=== PATIENT | female | born 1965 | race Caucasian/White ===

== ENCOUNTER → 2016-10-29 | Outpatient (CLI) | payer BC ==
--- NOTE | 2016-10-29 14:39 | DIAGNOSTIC IMAGING REPORT ---
LEFT KNEE 4 OR MORE CLINICAL HISTORY: LEFT KNEE PAIN COMPARISON STUDY: None. FINDINGS: Moderate left knee effusion. Mild anterior soft tissue swelling. No fracture or dislocation within the left knee. Moderate cartilage space narrowing within the medial compartment of the left knee. There is also mild patellofemoral osteoarthritis. Mild cartilage space narrowing within the medial compartment of the right knee. IMPRESSION: 1. Moderate left knee effusion. 2. Mild right and mild to moderate left knee osteoarthritis. Electronically signed by: Agustín Santos M.D. 10/29/2016 2:36 PM Dictated Date/Time: 10/29/2016 2:35 PM
== END | disposition home or self-care (01) ==
LOC: C.RDSM 14:00
PROVIDERS: ATTEND Physician Assistant
DX: M25.562 Pain in left knee (principal); M25.462 Effusion, left knee

== ENCOUNTER → 2017-03-15 | Outpatient (CLI) | payer BC ==
--- NOTE | 2017-03-16 13:22 | MAMMOGRAPHY REPORT ---
BILATERAL DIGITAL SCREENING MAMMOGRAM 3D/2D WITH CAD: 03/15/2017 CLINICAL HISTORY: Routine screening examination. Comparison is made to exams dated: 02/10/2016 mammogram, 02/07/2015 mammogram, 12/05/2013 mammogram, 07/21/2012 mammogram, 09/11/2010 mammogram, and 09/04/2009 mammogram - [facility]. FINDINGS: The tissue of both breasts is almost entirely fatty. Current study was also evaluated with a Computer Aided Detection (CAD) system. No suspicious mass, architectural distortion or cluster of microcalcifications is seen. ACR BI-RADS CATEGORY 1: NEGATIVE There is no mammographic evidence of malignancy. A 1 year screening mammogram is recommended. The pa tient will receive written notification of the results. Approximately 10% of breast cancers are not detected with mammography. A negative mammographic report should not delay biopsy if a clinically suggestive mass is present. Ada munoz/august:03/15/2017 16:30:07 Senior Budget Analyst: Rosalia MILLER(Sarah)(M), [facility] letter sent: Normal 1/2 BI-RADS Code: ACR BI-RADS Category 1: Negative
== END | disposition home or self-care (01) ==
LOC: C.MAMM 13:44
PROVIDERS: ATTEND Physician Assistant
DX: Z12.31 Encounter for screening mammogram for malignant neoplasm of breast (principal)